=== PATIENT | female | born 2000 | race Caucasian/White ===

== ENCOUNTER 2018-10-11 11:53 | Emergency (ER) | payer MEDICAID ==
[~2018-10-11] VITALS: Ht 157.5 cm; Wt 65.8 kg
[2018-10-11 11:58] VITALS: BP_SYST 104
--- NOTE | 2018-10-11 12:00 | NUR ---
Patient to ER bed 3 to gown for evaluation. Side rails up.
--- NOTE | 2018-10-11 12:14 | NUR ---
Pt brought in by mother. pt states lower back pain began yesterday. pt states she wanted pain medication. pt denies sob, cp, dizziness, n/v, blurred vision. pt a/ox4, denies any other medical complaint at this time. Pt resting in bed 3 with mother bedside. pt given blanket for comfort. pt appears to be in mild distress at this time. vss, will continue to monitor.
[2018-10-11] MEDS ORDERED: NACL 0.9% 1,000 ML IV ONE (12:15)
--- NOTE | 2018-10-11 12:20 | NUR ---
Pt refuses blood draw, Pt refuses IV access.
[2018-10-11 12:34] LABS: BILIRUBIN,URINE 1+ (NEGATIVE); BLOOD, URINE 3+ (NEGATIVE); CLARITY/URINE SL CLOUDY (CLEAR); COLOR,URINE ORANGE (YELLOW); GLUCOSE,URINE 3+ (NEGATIVE); KETONES,URINE 1+ (NEGATIVE); LEUKOCYTE ESTERASE ,URINE NEGATIVE (NEGATIVE); NITRITE, URINE NEGATIVE (NEGATIVE); PROTEIN URINE 2+ (NEGATIVE)
--- NOTE | 2018-10-11 12:34 | NUR ---
Malou lopez in [facility] - 10/11/18 at 1254 by [email or web address] Report From Mahad SCHULTE
[2018-10-11 12:37] LABS: BACTERIA,URINE FEW /HPF (None Seen); RBC,URINE >100 /HPF (0-3); WBC,URINE 0-3 /HPF (0-3)
--- NOTE | 2018-10-11 12:38 | NUR ---
ER Dr. Parra at bedside examining patient.
[2018-10-11] MEDS ORDERED: KETOROLAC TROMETHAMINE 60 MG/2 ML VIAL IM ONE (13:00)
--- NOTE | 2018-10-11 13:00 | NUR ---
Patient does not wish to proceed with medical care recommended by . Patient given information related to possible complications, up to and including , which could occur as a result of leaving hospital at this time. Patient verbalizes understanding of risks involved leaving against medical advice. Patient has signed AMA form.
== END 2018-10-11 13:00 | disposition left against medical advice (07) ==
LOC: SED 11:53
DX: E10.65 Type 1 diabetes mellitus with hyperglycemia (principal); M54.5 Low back pain
CPT/HCPCS: 81000; 82962; 96372; 99283; J1885